=== PATIENT | female | born 2005 | race Caucasian/White ===

== ENCOUNTER 2024-04-13 16:26 | Emergency (ER) | payer BC, SELFPAY ==
[2024-04-13 16:29] VITALS: BP 118/75; PULSE 87; RESP 18; TEMP 37.3; O2SAT 94
[2024-04-13 16:38] VITALS: PULSE 81; RESP 20; O2SAT 100; BMI 19.7
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
[2024-04-13 19:59] VITALS: RESP 18
== END 2024-04-13 19:59 | disposition home or self-care (01) ==
PROVIDERS: Emergency Provider Emergency Medicine
DX: S13.4XXA Sprain of ligaments of cervical spine, initial encounter (principal); S09.90XA Unspecified injury of head, initial encounter; V89.9XXA Person injured in unspecified vehicle accident, initial encounter
CPT/HCPCS: 70450; 72125; 99284